=== PATIENT | female | born 1945 | race Caucasian/White ===

== ENCOUNTER → 2016-10-18 | Outpatient (CLI) | payer OTHER ==
[~2016-10-18] MED LIST: ACET-709 PO; ACET325T14 PO; ALBU8.5H3 INH; AMLO10TA2 PO; ATOR20TA9 PO; BENA10TA2 PO; BUDE10.22 INH; CLOP75TA22 PO; CYAN100T PO; ERGO500017 PO; FLUT1DIS IH; FLUT1DIS3 INH; HYDR500C3 PO; IPRA12.9 IH; LOSA50TA2 PO; OLAN5TAB9 PO; OXYGEN INH; PROP20TA PO; SERT100T5 PO
== END | disposition home or self-care (01) ==
LOC: CFH 08:19 → EDSTATUS 09:15
PROVIDERS: ATTEND Family Medicine
DX: Z12.31 Encounter for screening mammogram for malignant neoplasm of breast (principal)
CPT/HCPCS: G0202

== ENCOUNTER → 2019-07-11 | Outpatient (CLI) | payer MEDICARE ==
[~2019-07-11] MED LIST changes: -ALBU8.5H3 INH; +ALBU8.5H8 INH; -AMLO10TA2 PO; +AMLO10TA8 PO; +ATOR20TA37 PO; -ATOR20TA9 PO; -BENA10TA2 PO; +BENA10TA59 PO; -CLOP75TA22 PO; +CLOP75TA52 PO; -CYAN100T PO; +CYAN100T2 PO; +SERT100T32 PO; -SERT100T5 PO
== END | disposition home or self-care (01) ==
LOC: CFH 12:33
PROVIDERS: ATTEND Internal Medicine
DX: R06.02 Shortness of breath (principal); I70.0 Atherosclerosis of aorta; E04.2 Nontoxic multinodular goiter
CPT/HCPCS: 71250